=== PATIENT | male | born 1990 | race Caucasian/White ===

== ENCOUNTER 2017-06-29 17:05 | Emergency (ER) | payer BC ==
[~2017-06-29] VITALS: Ht 190.5 cm; Wt 166.9 kg
[2017-06-29 17:12] VITALS: TEMP 36.9; Ht 190.5 cm; Wt 166.9 kg
--- NOTE | 2017-06-29 17:41 | DIAGNOSTIC IMAGING REPORT ---
CHEST ONE VIEW PORTABLE CLINICAL HISTORY: Weakness COMPARISON STUDY: No previous studies for comparison. FINDINGS: The heart is at the upper limits of normal in size. Mild mediastinal prominence is likely secondary to the AP portable technique and mediastinal fat deposition. There is no focal pulmonary consolidation. There are no pleural effusions. There is no failure.[ IMPRESSION: No active disease in the chest. Electronically signed by: Chele Cage M.D. 06/29/2017 5:39 PM Dictated Date/Time: 06/29/2017 5:39 PM
[2017-06-29] MEDS ORDERED: ESOM20CA PO (17:43)
[2017-06-29 18:01] LABS: BASO % 0.5 %; BASO ABS # 0.04 K/uL (0-0.2); EOS ABS # 0.75 K/uL (0-0.5); HEMATOCRIT 49.8 % (42-52); HEMOGLOBIN 17.3 g/dL (14.0-18.0); IG# 0.02 K/uL (0.00-0.02); LYMPH ABS # 2.01 K/uL (1.2-3.4); MEAN CELL VOLUME 87.4 fL (80-100); MEAN CORPUSCULAR HEMOGLOBIN 30.4 pg (25-34); MEAN CORPUSCULAR HGB CONC 34.7 g/dl (32-36); MEAN PLATELET VOLUME 9.9 fL (7.4-10.4); MONO % 9.1 %; MONO ABS # 0.76 K/uL (0.11-0.59); NEUT % 57.2 %; NEUT ABS # 4.79 K/uL (1.4-6.5); PLATELET COUNT 242 K/uL (130-400); RED CELL DISTRIBUTION WIDTH CV 13.1 % (11.5-14.5); RED CELL DISTRIBUTION WIDTH SD 41.3 fL (36.4-46.3); WHITE BLOOD COUNT 8.37 K/uL (4.8-10.8)
[2017-06-29 18:15] LABS: PTT PATIENT 26.2 SECONDS (21.0-31.0)
[2017-06-29 18:28] LABS: ALT/SGPT 68 U/L (12-78); BLOOD UREA NITROGEN 15 mg/dl (7-18); CALCIUM 9.1 mg/dl (8.5-10.1); CARBON DIOXIDE 27 mmol/L (21-32); CREATININE 1.17 mg/dl (0.60-1.40); GLUCOSE 85 mg/dl (70-99); LIPASE 82 U/L (73-393); POTASSIUM 3.8 mmol/L (3.5-5.1); SODIUM 139 mmol/L (136-145)
[2017-06-29 18:36] LABS: ALKALINE PHOSPHATASE 81 U/L (45-117); AST/SGOT 32 U/L (15-37); CKMB 3.3 ng/ml (0.5-3.6); TOTAL PROTEIN 7.3 gm/dl (6.4-8.2)
[2017-06-29 19:10] VITALS: BP 157/87; PULSE 72; O2SAT 99
--- NOTE | 2017-06-29 19:18 | EMERGENCY ROOM VISIT NOTE ---
History Report prepared by Cass: Florian Parson Under the Supervision of: Dr. King Parrish M.D. First contact with patient: 17:14 Chief Complaint: SWELLING TO EXTREMITY Stated Complaint: HIGH BLOOD PRESSURE, SWOLEN FLUID IN LOWER LEGS History of Present Illness The patient is a 27 year old male who presents to the Emergency Room with complaints of a persistent high blood pressure that was detected yesterday. He says that he recently just got a job, and will need to undergo a physical soon, so he checked his blood pressure yesterday with an automatic cuff at home, and it was 160/101. He states that he has been feeling fine however. The patient says that prior to yesterday, he last checked his blood pressure a couple months ago and it was lower but still high (around 150s systolic). The patient adds that he has noted swelling in his legs for "months". He states that he has gained a lot of weight over the past few years, partly due to lifting weights however. He adds that he just recently got back from a trip to [facility]. Per the patient's father, the patient has a strong history of heart attacks, hypertension, swelling, and diabetes. Pt denies LOC, new headaches, fevers, chills, notable diaphoresis, visual changes, neck pain, chest pain, notable breathing difficulties, nausea, vomiting, abdominal pain, back pain, melena, hematochezia, urinary symptoms, numbness, weakness, lymphadenopathy, rash, or other complaints. Source of History: patient, parent Onset: Yesterday Position: other (global) Symptom Intensity: bp of 160/101 Quality: other (high blood pressure) Timing: other (persistent) Note: Associated symptoms: Swelling in legs for months. No other associated symptoms noted. Review of Systems See HPI for pertinent positives and negatives. A total of ten systems were reviewed and were otherwise negative. Past Medical & Surgical Medical Problems: (1) HTN (hypertension) Family History Diabetes mellitus Heart disease Hypertension Social History Smoking Status: Never Smoker Drug Use: none Marital Status: Housing Status: lives with family Occupation Status: employed Current/Historical Medications Scheduled Esomeprazole Magnesium (Nexium), 1 CAP PO DAILY Allergies Coded Allergies: No Known Allergies (Unverified , 06/29/17) Physical Exam Vital Signs Date Time Temp Pulse Resp B/P (MAP) Pulse Ox O2 Delivery O2 Flow Rate FiO2 06/29/17 19:10 72 18 157/87 99 06/29/17 18:03 97 06/29/17 17:12 36.9 108 20 164/110 98 Room Air Physical Exam GENERAL: Awake, alert, well-appearing, in no distress HENT: Normocephalic, atraumatic. Oropharynx unremarkable. EYES: Normal conjunctiva. Sclera non-icteric. NECK: Supple. No nuchal rigidity. FROM. No masses. RESPIRATORY: Clear to auscultation. No wheezes. No rales. Normal respiratory effort. CARDIAC: Borderline tachycardic rate. Normal rhythm. No murmurs. No rubs. Extremities warm and well perfused. Pulses equal. No JVD. GI: Soft, non-distended. No tenderness to palpation. No rebound or guarding. No masses. RECTAL: Deferred. MUSCULOSKELETAL: Atraumatic. Chest examination reveals no tenderness. The back is symmetrical on inspection without obvious abnormality. There is no CVA tenderness to palpation. No joint edema. LOWER EXTREMITIES: Calves are equal size bilaterally and non-tender. Trace lower extremity edema. No discoloration. NEURO: Normal sensorium. No sensory or motor deficits noted. SKIN: No rash or jaundice noted. Medical Decision & Procedures Laboratory Results 06/29/17 17:50 Red Blood Count 5.70, Mean Corpuscular Volume 87.4, Mean Corpuscular Hemoglobin 30.4, Mean Corpuscular Hemoglobin Concent 34.7, Mean Platelet Volume 9.9, Neutrophils (%) (Auto) 57.2, Lymphocytes (%) (Auto) 24.0, Monocytes (%) (Auto) 9.1, Eosinophils (%) (Auto) 9.0, Basophils (%) (Auto) 0.5, Neutrophils # (Auto) 4.79, Lymphocytes # (Auto) 2.01, Monocytes # (Auto) 0.76, Eosinophils # (Auto) 0.75, Basophils # (Auto) 0.04 06/29/17 17:50 Test 06/29/17 17:50 White Blood Count 8.37 K/uL (4.8-10.8) Red Blood Count 5.70 M/uL (4.7-6.1) Hemoglobin 17.3 g/dL (14.0-18.0) Hematocrit 49.8 % (42-52) Mean Corpuscular Volume 87.4 fL (80-100) Mean Corpuscular Hemoglobin 30.4 pg (25-34) Mean Corpuscular Hemoglobin Concent 34.7 g/dl (32-36) Platelet Count 242 K/uL (130-400) Mean Platelet Volume 9.9 fL (7.4-10.4) Neutrophils (%) (Auto) 57.2 % Lymphocytes (%) (Auto) 24.0 % Monocytes (%) (Auto) 9.1 % Eosinophils (%) (Auto) 9.0 % Basophils (%) (Auto) 0.5 % Neutrophils # (Auto) 4.79 K/uL (1.4-6.5) Lymphocytes # (Auto) 2.01 K/uL (1.2-3.4) Monocytes # (Auto) 0.76 K/uL (0.11-0.59) Eosinophils # (Auto) 0.75 K/uL (0-0.5) Basophils # (Auto) 0.04 K/uL (0-0.2) RDW Standard Deviation 41.3 fL (36.4-46.3) RDW Coefficient of Variation 13.1 % (11.5-14.5) Immature Granulocyte % (Auto) 0.2 % Immature Granulocyte # (Auto) 0.02 K/uL (0.00-0.02) Prothrombin Time 10.0 SECONDS (9.0-12.0) Prothromb Time International Ratio 1.0 (0.9-1.1) Activated Partial Thromboplast Time 26.2 SECONDS (21.0-31.0) Partial Thromboplastin Ratio 1.0 D-Dimer 490 ug/L FEU (0-500) Anion Gap 9.0 mmol/L (3-11) Est Creatinine Clear Calc Drug Dose 157.6 ml/min Estimated GFR () 98.4 Estimated GFR (Non- 84.9 BUN/Creatinine Ratio 12.6 (10-20) Calcium Level 9.1 mg/dl (8.5-10.1) Magnesium Level 2.0 mg/dl (1.8-2.4) Total Bilirubin 0.5 mg/dl (0.2-1) Direct Bilirubin 0.2 mg/dl (0-0.2) Aspartate Amino Transf (AST/SGOT) 32 U/L (15-37) Alanine Aminotransferase (ALT/SGPT) 68 U/L (12-78) Alkaline Phosphatase 81 U/L (45-117) Total Creatine Kinase 477 U/L (39-308) Creatine Kinase MB 3.3 ng/ml (0.5-3.6) Creatine Kinase MB Ratio 0.7 (0-3.0) Troponin I < 0.015 ng/ml (0-0.045) Pro-B-Type Natriuretic Peptide 15 pg/ml (0-450) Total Protein 7.3 gm/dl (6.4-8.2) Albumin 4.0 gm/dl (3.4-5.0) Lipase 82 U/L (73-393) Thyroid Stimulating Hormone (TSH) 1.990 uIu/ml (0.300-4.500) ECG Per My Interpretation Indication: other (hypertension) Rate (beats per minute): 89 Rhythm: normal sinus Findings: no acute ischemic change, no ectopy, other (normal intervals) ED Course 1721: The patient was evaluated in room B4B. A complete history and physical exam was performed. 1851: I reevaluated the patient and he is resting comfortably.. Discussed results and discharge instructions: he verbalized understanding and agreement. The patient is ready for discharge. Medical Decision Prior records/ancillary studies reviewed regarding the history above. Triage Nursing notes reviewed and agree them. Additional history obtained from the family. The patient's history was concerning for hypertension and leg swelling. Differential diagnosis: Etiologies such as hypertensive urgency, hypertensive emergency, benign hypertension, cardiovascular pathology, pheochromocytoma, electrolyte abnormality, renal disease, endorgan damage, as well as others were entertained. Physical examination: As above. ER treatment provided: Reassurance On reassessment the patient felt better. Blood pressure improved Diagnostic interpretation by me: The electrocardiogram was negative for pathologic change. The labs revealed a normal CBC, chemistry panel, cardiac markers, d-dimer, and coags. Imaging studies: Chest x-ray as above. The patient has untreated hypertension. It is Mildly elevated. He was provided with primary care follow-up. We had a long discussion regarding this issue. I gave my usual and customary discussion regarding this issue. By the evaluation outlined above emergent etiologies such as hypertensive emergency, pheochromocytoma, endorgan damage, cardiac ischemia, aortic dissection, pulmonary embolism, pneumonia, pneumothorax, infections, gastrointestinal, DVT, as well as others were deemed relatively unlikely. The patient and family were informed about the findings as listed above. All questions were answered and they were pleased with the treatment. Return instructions were outlined and the patient was discharged in stable condition. Outpatient prescription management: None Medication Reconcilliation Current Medication List: was personally reviewed by me Blood Pressure Screening Patient's blood pressure: Elevated blood pressure Blood pressure disposition: Referred to PCP Impression Primary Impression: HTN (hypertension) Scribe Attestation The scribe's documentation has been prepared under my direction and personally reviewed by me in its entirety. I confirm that the note above accurately reflects all work, treatment, procedures, and medical decision making performed by me. Departure Information Dispostion Home / Self-Care Referrals No Doctor, Assigned (PCP) Patient Instructions [facility] Additional Instructions Follow-up with primary care tomorrow as discussed. Management of blood pressure and other routine health maintenance is necessary. Decrease sodium intake as discussed. Elevate your legs. Activity as tolerated. Return to the ER for worsening blood pressure issues, chest pain, difficulty breathing, fevers, vomiting, worsening of your condition, or as needed.
== END 2017-06-29 19:10 | disposition home or self-care (01) ==
LOC: C.EDB 17:09
DX: I10 Essential (primary) hypertension (principal); Z83.3 Family history of diabetes mellitus; Z82.49 Family history of ischemic heart disease and other diseases of the circulatory system